=== PATIENT | female | born 1945 | race Hispanic/Latino ===

== ENCOUNTER 2023-04-08 06:40 | Emergency (ER) | payer OTHER ==
[2023-04-08 07:22] LABS: #Eosinphils 0.2 thou/uL (0.0-0.7); #Monocytes 0.3 thou/uL (0.11-0.59); #Neutrophils 2.8 thou/uL (1.40-6.50); %Basophils 0.6 % (0.0-1.0); %Eosinophils 3.5 % (0.0-10.0); %Lymphocytes 35.8 % (21.0-51.0); %Monocytes 6.5 % (0.0-10.0); %Neutrophils 53.4 % (42.0-75.0); Hematocrit 39.5 % (36.0-47.0); Hemoglobin 12.5 g/dL (12.0-16.0); Mean Corpuscular HGB CONC 31.6 g/dL (32.0-36.0); Mean Corpuscular Hemoglobin 29.1 pg (27.0-31.0); Mean Corpuscular Volume 92.1 fl (78.0-98.0); Platelet Count 165 10x3/uL (130-400); Red Blood Cell (RBC) Count 4.29 mill/uL (4.20-5.40); White Blood Cell (WBC) Count 5.2 10x3/uL (4.8-10.8)
[2023-04-08 07:54] LABS: ALT (SGPT) 11 U/L (8-55); AST (SGOT) 15 U/L (5-34); Albumin 4.3 g/dL (3.4-4.8); Alkaline Phosphatase 21 U/L (40-110); Anion Gap 13 mmol/L (10-20); BUN (Urea Nitrogen) 22 mg/dL (9.8-20.1); Bilirubin, Total 0.7 mg/dL (0.2-1.2); Calc. Creatinine Clearance 0 mL/min (70-130); Calcium 9.4 mg/dL (7.8-10.44); Carbon Dioxide 27 mmol/L (23-31); Chloride 107 mmol/L (98-107); Estimated GFR 78; Globulin 2.1 g/dL (2.4-3.5); Glucose 105 mg/dL (83-110); Potassium 3.6 mmol/L (3.5-5.1); Protein, Total 6.4 g/dL (5.8-8.1); Sodium 143 mmol/L (136-145)
[2023-04-08 07:56] LABS: Troponin I Less than 0.010 ng/mL (< 0.028)
[2023-04-08 08:01] LABS: Bacteria/HPF None Seen HPF (None Seen); Bilirubin Negative (Negative); Blood, Urine Negative (Negative); CAUTI Indications for Culture Alt mental st,lethar; Clarity Clear (Clear); Glucose, Urine (Dipstick) Normal (Negative); Ketone, Urine Negative (Negative); Leukocyte 25 Leu/uL (Negative); Nitrite Negative (Negative); Protein, Urine (Dipstick) 10 mg/dL (Neg-Trace); RBC/HPF 0-3 HPF (0-3); Specific Gravity, Urine 1.021 (1.002-1.036); Squamous Epithelial 0-3 HPF (0-3); Urobilinogen Normal mg/dL (Less than 2); pH, Urine 6.5 (5.0-9.0)
[2023-04-08 08:13] LABS: Urine Culture Reflex No No
[2023-04-08] MEDS ORDERED: Iopamidol-370 76% 500 ML MDV (1 ML CHARGE) ONE (14:33)
== END 2023-04-08 10:53 | disposition home or self-care (01) ==
LOC: ERS 06:40
DX: J18.9 Pneumonia, unspecified organism (principal); R06.02 Shortness of breath; E11.9 Type 2 diabetes mellitus without complications; I10 Essential (primary) hypertension; E78.00 Pure hypercholesterolemia, unspecified
CPT/HCPCS: 36415; 71045; 71275; 80053; 81001; 84484; 85025; 85379; 93005; Q9967

== ENCOUNTER 2023-04-10 14:54 | Inpatient (IN) | payer OTHER ==
[2023-04-10 17:07] LABS: #Basophils 0.1 thou/uL (0.0-0.2); #Eosinphils 0.2 thou/uL (0.0-0.7); #Monocytes 0.6 thou/uL (0.11-0.59); #Neutrophils 2.9 thou/uL (1.40-6.50); %Basophils 0.9 % (0.0-1.0); %Eosinophils 3.5 % (0.0-10.0); %Lymphocytes 34.3 % (21.0-51.0); %Monocytes 10.4 % (0.0-10.0); %Neutrophils 50.7 % (42.0-75.0); Hematocrit 43.5 % (36.0-47.0); Hemoglobin 13.5 g/dL (12.0-16.0); Mean Corpuscular Hemoglobin 29.3 pg (27.0-31.0); Mean Corpuscular Volume 94.6 fl (78.0-98.0); Platelet Count 182 10x3/uL (130-400); RBC Distribution Width 15.1 % (11.5-14.5); White Blood Cell (WBC) Count 5.8 10x3/uL (4.8-10.8)
[2023-04-10 17:29] LABS: Anion Gap 17 mmol/L (10-20); BUN (Urea Nitrogen) 25 mg/dL (9.8-20.1); Calc. Creatinine Clearance 0 mL/min (70-130); Carbon Dioxide 21 mmol/L (23-31); Chloride 111 mmol/L (98-107); Estimated GFR 79; Potassium 3.5 mmol/L (3.5-5.1); Sodium 145 mmol/L (136-145)
[2023-04-10 17:30] LABS: ALT (SGPT) 9 U/L (8-55); AST (SGOT) 19 U/L (5-34); Albumin 4.2 g/dL (3.4-4.8); Alkaline Phosphatase 23 U/L (40-110); Bilirubin, Total 0.7 mg/dL (0.2-1.2); Calcium 9.5 mg/dL (7.8-10.44); Globulin 2.4 g/dL (2.4-3.5); Glucose 113 mg/dL (83-110); Protein, Total 6.6 g/dL (5.8-8.1)
[2023-04-10 17:57] LABS: Troponin I 0.014 ng/mL (< 0.028)
[2023-04-10] MEDS ORDERED: cefTRIAXone (ROCEPHIN) 1 GM VIAL ONE (19:53)
[2023-04-10] MEDS ORDERED: Furosemide 40 MG/4 ML VIAL ONE (19:53)
[2023-04-10 19:58] LABS: Magnesium 1.3 mg/dL (1.6-2.6)
[2023-04-10] MEDS ORDERED: Azithromycin 500 MG VIAL ONE (20:30)
[2023-04-10] MEDS ORDERED: Ondansetron PF 4 MG/2 ML Vial IVP PRN (21:19)
[2023-04-10] MEDS ORDERED: Acetaminophen 325 MG TAB PO PRN (21:19)
[2023-04-10] MEDS ORDERED: Ondansetron ODT 4 MG TAB PO PRN (21:19)
[2023-04-10] MEDS ORDERED: Acetaminophen 650 MG Suppository PR PRN (21:19)
[2023-04-10] MEDS ORDERED: Magnesium 2 GM/50 ML BAG (IN WATER) ONE (22:09)
[2023-04-10] MEDS ORDERED: Ipratropium/Albuterol 3 ML NEB NEB PRN (22:49)
[2023-04-10] MEDS ORDERED: Electrolyte Replacement Protocol 1 EACH FS PRN (23:15)
[2023-04-10] MEDS ORDERED: Dextrose 5% in Water 1,000 ML IV PRN (23:17)
[2023-04-10] MEDS ORDERED: HumaLOG 300 UNITS/3 ML VIAL SC PRN ×2 (23:17)
[2023-04-10] MEDS ORDERED: Glucagon 1 MG/ML KIT IM PRN (23:17)
[2023-04-10] MEDS ORDERED: Dextrose 50% Abboject 50 ML SYRINGE SLOW IVP PRN (23:17)
[2023-04-11] MEDS ORDERED: Lorazepam 0.5 MG TAB PO PRN (01:19)
[2023-04-11] MEDS: Ipratropium/Albuterol 3 ML NEB NEB SCH ×6 (03:12→22:52)
[2023-04-11 05:32] LABS: Anion Gap 19 mmol/L (10-20); BUN (Urea Nitrogen) 21 mg/dL (9.8-20.1); Calc. Creatinine Clearance 80 mL/min (70-130); Carbon Dioxide 24 mmol/L (23-31); Chloride 105 mmol/L (98-107); Estimated GFR 77; Glucose 89 mg/dL (83-110); Magnesium 1.6 mg/dL (1.6-2.6); Potassium 3.6 mmol/L (3.5-5.1); Sodium 144 mmol/L (136-145)
[2023-04-11 07:10] LABS: #Basophils 0.1 thou/uL (0.0-0.2); #Eosinphils 0.3 thou/uL (0.0-0.7); #Monocytes 0.9 thou/uL (0.11-0.59); #Neutrophils 3.5 thou/uL (1.40-6.50); %Basophils 0.6 % (0.0-1.0); %Eosinophils 3.4 % (0.0-10.0); %Lymphocytes 39.8 % (21.0-51.0); %Monocytes 11.7 % (0.0-10.0); %Neutrophils 44.2 % (42.0-75.0); Hematocrit 44.3 % (36.0-47.0); Hemoglobin 14.2 g/dL (12.0-16.0); Mean Corpuscular HGB CONC 32.1 g/dL (32.0-36.0); Mean Corpuscular Hemoglobin 29.6 pg (27.0-31.0); Mean Corpuscular Volume 92.5 fl (78.0-98.0); Mean Platelet Volume 12.3 fL (7.4-10.4); Platelet Count 159 10x3/uL (130-400); Red Blood Cell (RBC) Count 4.79 mill/uL (4.20-5.40); White Blood Cell (WBC) Count 7.9 10x3/uL (4.8-10.8)
[2023-04-11] MEDS ORDERED: Magnesium 2 GM/50 ML(in water) 2 GM in Premix 1 BAG IVPB SCH (08:00)
[2023-04-11] MEDS ORDERED: Ipratropium/Albuterol 3 ML NEB ONE ×2 (08:31→12:23)
[2023-04-11] MEDS ORDERED: Furosemide 40 MG/4 ML VIAL ONE (08:41)
[2023-04-11] MEDS: Furosemide 40 MG/4 ML VIAL SLOW IVP SCH (08:54)
[2023-04-12 00:30] VITALS: BMI 28.8
[2023-04-12] MEDS: Ipratropium/Albuterol 3 ML NEB NEB SCH ×6 (03:11→23:11)
[2023-04-12] MEDS: Furosemide 40 MG/4 ML VIAL SLOW IVP SCH (08:53)
[2023-04-12] MEDS ORDERED: Electrolyte Replacement Protocol FS PRN (11:00)
[2023-04-12] MEDS ORDERED: Spironolactone 25 MG TAB PO SCH (11:00)
[2023-04-12] MEDS ORDERED: Magnesium 2 GM/50 ML(in water) 2 GM in Premix 1 BAG IVPB SCH (14:00)
[2023-04-12] MEDS: Carbidopa/Levodopa 25-100 mg Tablet PO SCH ×2 (14:12→21:52)
[2023-04-12] MEDS: Pramipexole Di-HCl 1 MG TAB PO SCH ×2 (14:12→21:52)
[2023-04-12] MEDS: Atorvastatin Calcium 20 MG TAB PO SCH (21:52)
[2023-04-13] MEDS: Ipratropium/Albuterol 3 ML NEB NEB SCH ×6 (03:07→23:19)
[2023-04-13 04:54] LABS: #Eosinphils 0.2 thou/uL (0.0-0.7); #Monocytes 0.9 thou/uL (0.11-0.59); #Neutrophils 4.6 thou/uL (1.40-6.50); %Basophils 0.4 % (0.0-1.0); %Eosinophils 1.8 % (0.0-10.0); %Lymphocytes 31.2 % (21.0-51.0); %Monocytes 10.6 % (0.0-10.0); %Neutrophils 55.6 % (42.0-75.0); Hematocrit 39.7 % (36.0-47.0); Hemoglobin 12.4 g/dL (12.0-16.0); Mean Corpuscular HGB CONC 31.2 g/dL (32.0-36.0); Mean Corpuscular Hemoglobin 29.2 pg (27.0-31.0); Mean Corpuscular Volume 93.6 fl (78.0-98.0); Mean Platelet Volume 11.2 fL (7.4-10.4); Platelet Count 165 10x3/uL (130-400); RBC Distribution Width 15.3 % (11.5-14.5); Red Blood Cell (RBC) Count 4.24 mill/uL (4.20-5.40); White Blood Cell (WBC) Count 8.2 10x3/uL (4.8-10.8)
[2023-04-13 05:19] LABS: Anion Gap 16 mmol/L (10-20); BUN (Urea Nitrogen) 30 mg/dL (9.8-20.1); Calc. Creatinine Clearance 68 mL/min (70-130); Calcium 8.8 mg/dL (7.8-10.44); Carbon Dioxide 26 mmol/L (23-31); Chloride 99 mmol/L (98-107); Estimated GFR 65; Glucose 129 mg/dL (83-110); Magnesium 2.2 mg/dL (1.6-2.6); Sodium 138 mmol/L (136-145)
[2023-04-13] MEDS ORDERED: Potassium Chloride 20 MEQ TAB PO SCH (08:30)
[2023-04-13] MEDS: Valsartan 80 MG TAB PO SCH (08:47)
[2023-04-13] MEDS: Furosemide 40 MG/4 ML VIAL SLOW IVP SCH (08:48)
[2023-04-13] MEDS: Pramipexole Di-HCl 1 MG TAB PO SCH ×3 (08:48→20:35)
[2023-04-13] MEDS: Aspirin 81 mg Enteric Coated Tablet PO SCH (08:48)
[2023-04-13] MEDS: Raloxifene 60 MG TAB PO SCH (08:49)
[2023-04-13] MEDS: Empagliflozin 10 MG TAB PO SCH (08:49)
[2023-04-13] MEDS: Carbidopa/Levodopa 25-100 mg Tablet PO SCH ×3 (08:49→20:35)
[2023-04-13] MEDS: Spironolactone 25 MG TAB PO SCH (08:50)
[2023-04-13] MEDS ORDERED: Cholecalciferol 1,000 UNITS (25 MCG) TAB PO SCH (09:00)
[2023-04-13] MEDS ORDERED: Rasagiline Mesylate 1 MG Tab PO SCH (09:00)
[2023-04-13] MEDS: Atorvastatin Calcium 20 MG TAB PO SCH (20:35)
[2023-04-14] MEDS: Ipratropium/Albuterol 3 ML NEB NEB SCH ×6 (03:30→22:42)
[2023-04-14 04:25] LABS: #Eosinphils 0.3 thou/uL (0.0-0.7); #Monocytes 0.7 thou/uL (0.11-0.59); #Neutrophils 4.1 thou/uL (1.40-6.50); %Basophils 0.3 % (0.0-1.0); %Eosinophils 3.9 % (0.0-10.0); %Lymphocytes 26.2 % (21.0-51.0); %Monocytes 9.6 % (0.0-10.0); %Neutrophils 59.6 % (42.0-75.0); Hematocrit 39.5 % (36.0-47.0); Hemoglobin 12.6 g/dL (12.0-16.0); Mean Corpuscular HGB CONC 31.9 g/dL (32.0-36.0); Mean Corpuscular Hemoglobin 29.2 pg (27.0-31.0); Mean Corpuscular Volume 91.4 fl (78.0-98.0); Mean Platelet Volume 11.6 fL (7.4-10.4); Platelet Count 148 10x3/uL (130-400); RBC Distribution Width 15.2 % (11.5-14.5); Red Blood Cell (RBC) Count 4.32 mill/uL (4.20-5.40); White Blood Cell (WBC) Count 6.9 10x3/uL (4.8-10.8)
[2023-04-14 04:49] LABS: Anion Gap 15 mmol/L (10-20); BUN (Urea Nitrogen) 21 mg/dL (9.8-20.1); Calc. Creatinine Clearance 83 mL/min (70-130); Carbon Dioxide 26 mmol/L (23-31); Chloride 103 mmol/L (98-107); Estimated GFR 82; Glucose 109 mg/dL (83-110); Phosphorus 3.4 mg/dL (2.3-4.7); Potassium 3.9 mmol/L (3.5-5.1); Sodium 140 mmol/L (136-145)
[2023-04-14] MEDS ORDERED: Magnesium 2 GM/50 ML(in water) 2 GM in Premix 1 BAG IVPB SCH (08:00)
[2023-04-14] MEDS ORDERED: Regadenoson 0.4 MG/5 ML SYRINGE ONE (08:45)
[2023-04-14] MEDS: Spironolactone 25 MG TAB PO SCH (09:44)
[2023-04-14] MEDS: Pramipexole Di-HCl 1 MG TAB PO SCH ×3 (09:44→20:22)
[2023-04-14] MEDS: Carbidopa/Levodopa 25-100 mg Tablet PO SCH ×3 (09:46→20:22)
[2023-04-14] MEDS: Aspirin 81 mg Enteric Coated Tablet PO SCH (09:47)
[2023-04-14] MEDS: Furosemide 40 MG/4 ML VIAL SLOW IVP SCH (09:47)
[2023-04-14] MEDS: Empagliflozin 10 MG TAB PO SCH (09:47)
[2023-04-14] MEDS: Raloxifene 60 MG TAB PO SCH (09:47)
[2023-04-14] MEDS: Valsartan 80 MG TAB PO SCH (13:23)
[2023-04-14] MEDS ORDERED: CATH FS PRN (14:30)
[2023-04-14] MEDS: Atorvastatin Calcium 20 MG TAB PO SCH (20:22)
[2023-04-15] MEDS: Ipratropium/Albuterol 3 ML NEB NEB SCH ×3 (02:34→12:17)
[2023-04-15 04:52] LABS: #Eosinphils 0.3 thou/uL (0.0-0.7); #Monocytes 0.7 thou/uL (0.11-0.59); #Neutrophils 3.5 thou/uL (1.40-6.50); %Basophils 0.6 % (0.0-1.0); %Eosinophils 4.6 % (0.0-10.0); %Lymphocytes 33.9 % (21.0-51.0); %Monocytes 9.8 % (0.0-10.0); %Neutrophils 50.8 % (42.0-75.0); Hematocrit 38.3 % (36.0-47.0); Mean Corpuscular HGB CONC 31.3 g/dL (32.0-36.0); Mean Corpuscular Hemoglobin 28.9 pg (27.0-31.0); Mean Corpuscular Volume 92.3 fl (78.0-98.0); Mean Platelet Volume 11.9 fL (7.4-10.4); Platelet Count 142 10x3/uL (130-400); RBC Distribution Width 15.1 % (11.5-14.5); Red Blood Cell (RBC) Count 4.15 mill/uL (4.20-5.40); White Blood Cell (WBC) Count 6.8 10x3/uL (4.8-10.8)
[2023-04-15 05:21] LABS: Anion Gap 14 mmol/L (10-20); BUN (Urea Nitrogen) 23 mg/dL (9.8-20.1); Calc. Creatinine Clearance 68 mL/min (70-130); Calcium 9.2 mg/dL (7.8-10.44); Carbon Dioxide 27 mmol/L (23-31); Chloride 101 mmol/L (98-107); Estimated GFR 64; Glucose 110 mg/dL (83-110); Potassium 3.3 mmol/L (3.5-5.1); Sodium 139 mmol/L (136-145)
[2023-04-15] MEDS: Empagliflozin 10 MG TAB PO SCH (09:57)
[2023-04-15] MEDS: Aspirin 81 mg Enteric Coated Tablet PO SCH (09:57)
[2023-04-15] MEDS: Valsartan 80 MG TAB PO SCH (09:57)
[2023-04-15] MEDS: Pramipexole Di-HCl 1 MG TAB PO SCH ×3 (09:57→21:47)
[2023-04-15] MEDS: Spironolactone 25 MG TAB PO SCH (09:58)
[2023-04-15] MEDS: Raloxifene 60 MG TAB PO SCH (09:58)
[2023-04-15] MEDS: Carbidopa/Levodopa 25-100 mg Tablet PO SCH ×3 (09:58→21:47)
[2023-04-15] MEDS ORDERED: Ipratropium/Albuterol 3 ML NEB NEB PRN (11:16)
[2023-04-15] MEDS: Atorvastatin Calcium 20 MG TAB PO SCH (21:47)
[2023-04-16 05:20] LABS: #Eosinphils 0.2 thou/uL (0.0-0.7); #Monocytes 0.7 thou/uL (0.11-0.59); %Basophils 0.5 % (0.0-1.0); %Eosinophils 2.9 % (0.0-10.0); %Lymphocytes 18.8 % (21.0-51.0); %Monocytes 9.4 % (0.0-10.0); %Neutrophils 68.1 % (42.0-75.0); Hematocrit 38.2 % (36.0-47.0); Mean Corpuscular HGB CONC 31.4 g/dL (32.0-36.0); Mean Corpuscular Hemoglobin 29.2 pg (27.0-31.0); Mean Corpuscular Volume 92.9 fl (78.0-98.0); Mean Platelet Volume 11.2 fL (7.4-10.4); Platelet Count 143 10x3/uL (130-400); RBC Distribution Width 14.7 % (11.5-14.5); Red Blood Cell (RBC) Count 4.11 mill/uL (4.20-5.40); White Blood Cell (WBC) Count 7.3 10x3/uL (4.8-10.8)
[2023-04-16 05:46] LABS: Anion Gap 15 mmol/L (10-20); BUN (Urea Nitrogen) 21 mg/dL (9.8-20.1); Calc. Creatinine Clearance 85 mL/min (70-130); Carbon Dioxide 23 mmol/L (23-31); Chloride 103 mmol/L (98-107); Estimated GFR 82; Glucose 110 mg/dL (83-110); Potassium 3.6 mmol/L (3.5-5.1); Sodium 137 mmol/L (136-145)
[2023-04-16] MEDS: Raloxifene 60 MG TAB PO SCH (08:53)
[2023-04-16] MEDS: Pramipexole Di-HCl 1 MG TAB PO SCH ×3 (08:53→20:50)
[2023-04-16] MEDS: Aspirin 81 mg Enteric Coated Tablet PO SCH (08:53)
[2023-04-16] MEDS: Valsartan 80 MG TAB PO SCH (08:53)
[2023-04-16] MEDS: Carbidopa/Levodopa 25-100 mg Tablet PO SCH ×3 (08:53→20:50)
[2023-04-16] MEDS: Spironolactone 25 MG TAB PO SCH (08:53)
[2023-04-16] MEDS: Empagliflozin 10 MG TAB PO SCH (08:54)
[2023-04-16] MEDS: Atorvastatin Calcium 20 MG TAB PO SCH (20:50)
[2023-04-17] MEDS: Sodium Chloride 0.9% 1,000 ML IV SCH ×2 (06:20→18:37)
[2023-04-17] MEDS ORDERED: Adenosine 6 MG/2 ML VIAL ONE (06:27)
[2023-04-17] MEDS ORDERED: Heparin 10,000 UNITS/ 10 ML VIAL ONE (06:27)
[2023-04-17] MEDS ORDERED: Nitroglycerin 50 MG/250 ML BOT 0 ML ONE (06:28)
[2023-04-17] MEDS ORDERED: Lidocaine 1% (PF) 30 ML VIAL ONE (06:28)
[2023-04-17] MEDS: Valsartan 80 MG TAB PO SCH (11:10)
[2023-04-17] MEDS: Carbidopa/Levodopa 25-100 mg Tablet PO SCH ×3 (11:10→20:45)
[2023-04-17] MEDS: Aspirin 81 mg Enteric Coated Tablet PO SCH (11:10)
[2023-04-17] MEDS: Raloxifene 60 MG TAB PO SCH (11:10)
[2023-04-17] MEDS: Pramipexole Di-HCl 1 MG TAB PO SCH ×3 (11:11→20:45)
[2023-04-17] MEDS: Spironolactone 25 MG TAB PO SCH (11:11)
[2023-04-17] MEDS: Atorvastatin Calcium 20 MG TAB PO SCH (20:45)
[2023-04-18] MEDS: Sodium Chloride 0.9% 1,000 ML IV SCH ×2 (01:45→14:45)
[2023-04-18] MEDS ORDERED: Empagliflozin 10 MG TAB PO SCH (09:00)
[2023-04-18] MEDS: Spironolactone 25 MG TAB PO SCH (09:35)
[2023-04-18] MEDS: Pramipexole Di-HCl 1 MG TAB PO SCH ×2 (09:35→15:09)
[2023-04-18] MEDS: Carbidopa/Levodopa 25-100 mg Tablet PO SCH ×2 (09:35→15:09)
[2023-04-18] MEDS: Raloxifene 60 MG TAB PO SCH (09:35)
[2023-04-18] MEDS: Aspirin 81 mg Enteric Coated Tablet PO SCH (09:35)
[2023-04-18] MEDS: Valsartan 80 MG TAB PO SCH (09:36)
[2023-04-18 14:07] VITALS: TEMP 97.7
[2023-04-18 17:09] VITALS: BP 124/78
== END 2023-04-18 17:00 | DRG 286 ==
LOC: ERS 14:54 → ERHOLD 20:41 → 2NO 20:42
PROVIDERS: ADMIT Student in an Organized Health Care Education/Training Program; ATTEND Internal Medicine
PROC: B2111ZZ Fluoroscopy of Multiple Coronary Arteries using Low Osmolar Contrast (ICD-10-PCS; principal; 2023-04-17)
PROC: 4A023N7 Measurement of Cardiac Sampling and Pressure, Left Heart, Percutaneous Approach (ICD-10-PCS; 2023-04-17)
PROC: B2151ZZ Fluoroscopy of Left Heart using Low Osmolar Contrast (ICD-10-PCS; 2023-04-17)
DX: I11.0 Hypertensive heart disease with heart failure (principal); I50.23 Acute on chronic systolic (congestive) heart failure; J98.11 Atelectasis; G20.A1 Parkinson's disease without dyskinesia, without mention of fluctuations; I42.9 Cardiomyopathy, unspecified; E11.9 Type 2 diabetes mellitus without complications; E78.00 Pure hypercholesterolemia, unspecified; E83.42 Hypomagnesemia; I44.7 Left bundle-branch block, unspecified; E87.6 Hypokalemia; Z98.890 Other specified postprocedural states; Z79.82 Long term (current) use of aspirin; Z79.899 Other long term (current) drug therapy
CPT/HCPCS: 36415; 36416; 71045; 71275; 78452; 80048; 80053; 81001; 83735; 83880; 84100; 84484; 85025; 85379; 93005; 93017; 93306; 93458; 93798; 94640; 96365; 96366; 96368; 96375; A9502; C1769; J0153; J0456; J0696; J1644; J1650; J1940; J2001; J2785; J3475; J7050; J7620; Q9967